=== PATIENT | female | born 1955 | race Caucasian/White ===

== ENCOUNTER 2017-07-28 17:28 | Emergency (ER) | payer BC ==
[2017-07-28] MEDS ORDERED: Ondansetron HCl/PF 4 MG/2 ML Vial ONE (17:40)
[2017-07-28] MEDS ORDERED: Promethazine HCl 25 MG/ML VIAL ONE (18:06)
[2017-07-28] MEDS ORDERED: diphenhydrAMINE 50 MG/ML VIAL ONE (18:06)
[2017-07-28 18:13] LABS: ALT (SGPT) 31 U/L (8-55); AST (SGOT) 25 U/L (5-34); Alkaline Phosphatase 80 U/L (40-150); Anion Gap 20 mmol/L (10-20); BUN (Urea Nitrogen) 23 mg/dL (9.8-20.1); Bilirubin, Total 0.4 mg/dL (0.2-1.2); Calc. Creatinine Clearance 0 mL/min (70-130); Calcium 9.5 mg/dL (7.8-10.44); Carbon Dioxide 17 mmol/L (23-31); Chloride 108 mmol/L (98-107); Estimated GFR-MDRD 46; Protein, Total 7.2 g/dL (6.0-8.3)
[2017-07-28 18:23] LABS: #Lymphocytes 0.4 thou/uL (1.20-3.40); #Monocytes 0.2 thou/uL (0.11-0.59); #Neutrophils 6.7 thou/uL (1.40-6.50); %Basophils 0.4 % (0.0-1.0); %Eosinophils 0.6 % (0.0-10.0); %Monocytes 2.9 % (0.0-10.0); Hematocrit 39.6 % (36.0-47.0); Mean Platelet Volume 6.8 fL (7.4-10.4); Red Blood Cell (RBC) Count 4.48 mill/uL (4.20-5.40); White Blood Cell (WBC) Count 7.3 thou/uL (4.8-10.8)
== END 2017-07-28 18:53 | disposition home or self-care (01) ==
LOC: SCSER 17:28
DX: E86.0 Dehydration (principal); R11.2 Nausea with vomiting, unspecified; R19.7 Diarrhea, unspecified; R51 Headache; E11.9 Type 2 diabetes mellitus without complications; E78.5 Hyperlipidemia, unspecified; I10 Essential (primary) hypertension; Z85.3 Personal history of malignant neoplasm of breast
CPT/HCPCS: 80053; 85025; 96374; 96375; J1200; J2405; J2550

== ENCOUNTER 2017-12-09 01:23 | Emergency (ER) | payer BC ==
[2017-12-09] MEDS ORDERED: Ketorolac Tromethamine 30 MG/ML VIAL ONE (01:48)
[2017-12-09] MEDS ORDERED: diphenhydrAMINE 50 MG/ML VIAL ONE (01:48)
[2017-12-09] MEDS ORDERED: Metoclopramide HCl 10 MG/2 ML VIAL ONE (01:48)
[2017-12-09] MEDS ORDERED: methylPREDNISolone Sod Succ/PF 125 MG/2 ML VIAL ONE (03:05)
[2017-12-09] MEDS ORDERED: Magnesium Sulfate 2 GM/NS 0.9% 50 ML BAG ONE (03:05)
[2017-12-09] MEDS ORDERED: Acetaminophen 500 MG TAB ONE (03:13)
--- NOTE | 2017-12-09 08:17 | RAD ---
UPRIGHT PORTABLE CHEST 1 VIEW: Date: 12/09/17 HISTORY: 62-year-old female with cough, fever, nasal congestion, headache, and generalized back pain. COMPARISON: 12/10/16. FINDINGS: Heart size is within normal limits. Lungs are clear. No confluent pneumonia, overt edema, or pleural effusion. IMPRESSION: No acute intrathoracic disease. Stable from prior study. POS: [facility]
== END 2017-12-09 04:14 | disposition home or self-care (01) ==
LOC: SCSER 01:23
DX: J20.9 Acute bronchitis, unspecified (principal); R51 Headache; E11.9 Type 2 diabetes mellitus without complications; E78.5 Hyperlipidemia, unspecified; I10 Essential (primary) hypertension; Z85.3 Personal history of malignant neoplasm of breast; Z79.899 Other long term (current) drug therapy
CPT/HCPCS: 71045; 94640; J1200; J1885; J2765; J2930; J3475; J7620

== ENCOUNTER 2017-12-09 17:49 | Emergency (ER) | payer BC ==
[2017-12-09] MEDS ORDERED: diphenhydrAMINE 50 MG/ML VIAL ONE (18:07)
[2017-12-09] MEDS ORDERED: Promethazine HCl 25 MG/ML VIAL ONE (18:07)
[2017-12-09] MEDS ORDERED: Haloperidol Lactate 5 MG/ML VIAL ONE (18:50)
[2017-12-09] MEDS ORDERED: Acetaminophen 500 MG TAB ONE (19:01)
--- NOTE | 2017-12-09 19:38 | CT ---
HEAD CT WITHOUT CONTRAST: 12/09/2017 HISTORY: Headache. COMPARISON: 09/15/2014 TECHNIQUE: Serial axial CT imaging at 4.8 mm intervals, from the vertex through the skull base, without contrast . FINDINGS: Partially imaged polypoid mucosal thickening noted within the left maxillary sinus. The imaged paran faby sinuses/mastoid air cells are well aerated otherwise. There is no displaced calvarial fracture. No intracranial hemorrhage, midline shift, mass effect, or ventricular enlargement. IMPRESSION: No acute findings. Stable head CT. POS: [facility]
[2017-12-09 19:42] LABS: Band 6 % (5-11); Lymphocytes 12 % (21-51); MDiff Complete? YES; Mean Corpuscular HGB CONC 34.8 g/dL (32.0-36.0); Mean Corpuscular Hemoglobin 30.5 pg (27.0-31.0); Mean Corpuscular Volume 87.6 fl (81.0-99.0); Mean Platelet Volume 6.5 fL (7.4-10.4); Monocytes 9 % (0-10); Neutrophil 71 % (42-75); PLT Morphology Comment PLT clumps seen-ADEQ; Platelet Count 137 thou/uL (130-400); RBC Distribution Width 12.9 % (11.5-14.5); Red Blood Cell (RBC) Count 3.95 mill/uL (4.20-5.40); White Blood Cell (WBC) Count 4.2 thou/uL (4.8-10.8)
[2017-12-09 19:43] LABS: ALT (SGPT) 27 U/L (8-55); AST (SGOT) 23 U/L (5-34); Albumin 3.9 g/dL (3.4-4.8); Alkaline Phosphatase 73 U/L (40-150); Anion Gap 15 mmol/L (10-20); BUN (Urea Nitrogen) 16 mg/dL (9.8-20.1); Bilirubin, Total 0.3 mg/dL (0.2-1.2); Calc. Creatinine Clearance 0 mL/min (70-130); Calcium 8.7 mg/dL (7.8-10.44); Carbon Dioxide 22 mmol/L (23-31); Chloride 109 mmol/L (98-107); Estimated GFR-MDRD 49; Globulin 2.9 g/dL (2.4-3.5); Glucose 122 mg/dL (80-115); Potassium 4.1 mmol/L (3.5-5.1); Protein, Total 6.8 g/dL (6.0-8.3); Sodium 142 mmol/L (136-145)
[2017-12-09 20:04] LABS: Bilirubin Negative (Negative); Blood, Urine Moderate (Negative); Clarity Clear (Clear); Glucose, Urine (Dipstick) Negative (Negative); Leukocyte Negative (Negative); Nitrite Negative (Negative); Protein, Urine (Dipstick) 30 mg/dL (Neg-Trace); Specific Gravity, Urine 1.015 (1.005-1.030); Urobilinogen 0.2 mg/dL (0.2-1.0); pH, Urine 7.5 (5.0-9.0)
[2017-12-09 20:15] LABS: Squamous Epithelial 0-3 HPF (0-3); WBC/HPF 0-3 HPF (0-3)
[2017-12-09] MEDS ORDERED: Magnesium Sulfate 2 GM/NS 0.9% 50 ML BAG ONE (20:41)
[2017-12-09] MEDS ORDERED: Ketorolac Tromethamine 30 MG/ML VIAL ONE (20:41)
[2017-12-09] MEDS ORDERED: cefTRIAXone\\ROCEPHIN 2 GM VIAL ONE (20:46)
--- NOTE | 2017-12-09 21:38 | RAD ---
CHEST TWO VIEWS: 12/09/2017 HISTORY: Fever. COMPARISON: 12/10/2016 FINDINGS: There is a focal area of pulmonary parenchymal opacity in the right perihilar region. There is no pn eumothorax, pleural fluid, or alveolar edema. Heart and mediastinal contours are unremarkable. IMPRESSION: Focal area of right perihilar opacity seen on frontal imaging. This is suspicious for right perihila r infectious pneumonitis/aspiration, given history of fever. Short-term follow-up imaging of the tabitha st following treatment is advised to exclude an underlying right hilar mass. CODE T POS: [facility]
--- NOTE | 2018-01-01 14:39 | EKG ---
Test Reason : Blood Pressure : / mmHG Vent. Rate : 098 BPM Atrial Rate : 098 BPM P-R Int : 164 ms QRS Dur : 102 ms QT Int : 350 ms P-R-T Axes : 028 027 034 degrees QTc Int : 446 ms Normal sinus rhythm Inferior infarct , age undetermined Normal QR interval Abnormal ECG Confirmed by SHANIQUE ASKEW ([id number]), commercial production editor STAN SILVERMAN ([id number]) on 01/01/2018 2:38:34 PM Referred By: Confirmed By:SHANIQUE ASKEW
== END 2017-12-09 22:58 | disposition home or self-care (01) ==
LOC: SCSER 17:49
DX: J18.9 Pneumonia, unspecified organism (principal); R51 Headache; E11.9 Type 2 diabetes mellitus without complications; E78.5 Hyperlipidemia, unspecified; I10 Essential (primary) hypertension; Z85.3 Personal history of malignant neoplasm of breast; Z79.82 Long term (current) use of aspirin; Z79.899 Other long term (current) drug therapy
CPT/HCPCS: 70450; 71045; 71046; 80053; 81003; 81015; 83605; 85025; 87040; 87086; 93005; 94640; 96365; 96367; 96375; J0696; J1200; J1630; J1885; J2550; J2765; J2930; J3475; J7620

== ENCOUNTER 2019-04-23 19:40 | Inpatient (IN) | payer BC ==
[~2019-04-23 19:40] MED LIST: ISOVUE-370 76%-LOCM 1 ML ONE
[2019-04-23] MEDS ORDERED: Promethazine HCl 25 MG/ML VIAL ONE (20:12)
[2019-04-23] MEDS ORDERED: diphenhydrAMINE 50 MG/ML VIAL ONE (20:12)
[2019-04-23 20:16] LABS: #Eosinphils 0.1 thou/uL (0.0-0.7); #Lymphocytes 1.2 thou/uL (1.20-3.40); #Monocytes 0.6 thou/uL (0.11-0.59); #Neutrophils 5.9 thou/uL (1.40-6.50); %Basophils 0.3 % (0.0-1.0); %Eosinophils 0.9 % (0.0-10.0); %Lymphocytes 15.5 % (21.0-51.0); %Monocytes 7.3 % (0.0-10.0); Hemoglobin 13.2 g/dL (12.0-16.0); Mean Corpuscular HGB CONC 34.3 g/dL (32.0-36.0); Mean Corpuscular Hemoglobin 31.2 pg (27.0-31.0); Mean Platelet Volume 7.8 fL (7.4-10.4); Platelet Count 186 thou/uL (130-400); RBC Distribution Width 13.3 % (11.5-14.5); Red Blood Cell (RBC) Count 4.24 mill/uL (4.20-5.40); White Blood Cell (WBC) Count 7.8 thou/uL (4.8-10.8)
[2019-04-23 20:35] LABS: ALT (SGPT) 30 U/L (8-55); AST (SGOT) 32 U/L (5-34); Albumin 4.4 g/dL (3.4-4.8); Alkaline Phosphatase 129 U/L (40-150); Anion Gap 15 mmol/L (10-20); BUN (Urea Nitrogen) 23 mg/dL (9.8-20.1); Bilirubin, Total 0.5 mg/dL (0.2-1.2); Calc. Creatinine Clearance 0 mL/min (70-130); Carbon Dioxide 26 mmol/L (23-31); Chloride 103 mmol/L (98-107); Estimated GFR-MDRD 31; Globulin 3.2 g/dL (2.4-3.5); Glucose 185 mg/dL (80-115); Potassium 4.3 mmol/L (3.5-5.1); Protein, Total 7.6 g/dL (6.0-8.3); Sodium 140 mmol/L (136-145)
[2019-04-23] MEDS ORDERED: Morphine 4 MG/ML VIAL ONE (21:14)
[2019-04-23] MEDS ORDERED: Ondansetron PF 4 MG/2 ML Vial ONE (21:20)
--- NOTE | 2019-04-23 22:01 | CT ---
CT ABDOMEN WITH CONTRAST CT PELVIS WITH CONTRAST: DATE: 04/23/2019 9:29 PM HISTORY: 64-year-old female with right upper quadrant abdominal pain, nausea, and emesis after liver biopsy pe rformed at [facility] yesterday. COMPARISON: 04/15/2019 TECHNIQUE: IV injection of iodinated contrast media: administered. Oral contrast media:Not administered FINDINGS: Again noted is the mass with heterogeneous attenuation and patchy mild to moderate enhancement, in th e right lobe of the liver, including hepatic segments 5 and 6. There is a new finding of a tiny, thin layer of superficial layer of fluid containing a tiny air bubble, at the lateral surface of the lower portion of the right lobe of the liver. There are otherwise no other collections of fluid. Bilateral renal cysts. No hydronephrosis. Normal a ppendix. No small bowel dilation. No colonic diverticulitis. No abdominal aortic aneurysm. Delayed excretion of IV contrast material into the gallbladder. No portal vein thrombosis. No adrenal nodule. Normal pancreas, adrenals, and spleen. No pneumoperitoneum. New finding of mild patchy groundglass densities at the bilateral lung bases, nonspecific. New findin g of mild confluent airspace density at base of right lower lobe, nonspecific, probably subsegmental atelectasis, unlikely to be early pneumonia, although that is not completely excluded. IMPRESSION: 1) very small, thin layer of postbiopsy hematoma at the lateral surface of right lobe of liver, is ex pected after recent biopsy. 2) no evidence of complications. 3) mild airspace density at base of right lower lobe. Favor atelectasis over pneumonia.
[2019-04-24] MEDS ORDERED: Dextrose 5% in Water 1,000 ML IV PRN (02:13)
[2019-04-24] MEDS ORDERED: Dextrose 50% Abboject 50 ML SYRINGE SLOW IVP PRN (02:13)
[2019-04-24] MEDS ORDERED: Sodium Chloride 0.9% 1,000 ML IV SCH (02:15)
--- NOTE | 2019-04-24 03:25 | PDOC.EVN ---
Event Note - Event Note Event Note: H&P dictated [id number]
[2019-04-24] MEDS: Morphine 4 MG/ML VIAL SLOW IVP PRN ×3 (03:35→21:22)
[2019-04-24] MEDS: Dextrose 5 % And 0.9 % NaCl 1,000 ML IV SCH ×2 (03:35→17:56)
[2019-04-24 04:31] VITALS: BMI 34.7
--- NOTE | 2019-04-24 05:08 | HP ---
CHIEF COMPLAINT: Abdominal pain. HISTORY OF PRESENT ILLNESS: Ms. Moore is a 64-year-old female with past medical history of breast cancer with suspicious lesion on the liver which was biopsied yesterday at [facility], presenting to the emergency room with abdominal pain. The patient also reports nausea and vomiting. Also she reports headache. She had chills, but no fever. The patient went yesterday to the [facility] Emergency Room and she was discharged on morphine with improvement and then the pain started to become worse again. The patient vomited after breakfast and lunch. Workup in the emergency room including CT of the abdomen, the patient was found to have small post biopsy hematoma. ED physician attempted to transfer the patient to [facility], but the hospital was at full capacity. The patient is being admitted for observation and surgeon is being consulted who will see the patient early in the morning. PAST MEDICAL HISTORY: 1. Breast cancer. 2. Migraines. 3. Diabetes. 4. Hypertension. 5. Hyperlipidemia. PAST SURGICAL HISTORY: Right knee replacement. HOME MEDICATIONS: Please see home medications reconciliation form for updated medications. ALLERGIES: ALLERGIC TO SULFA AND IMITREX. SOCIAL HISTORY: Drinks alcohol socially. Denies smoking. FAMILY HISTORY: Reviewed and noncontributory. REVIEW OF SYSTEMS: Review of 14-systems negative except what was mentioned in the history of present illness. PHYSICAL EXAMINATION: GENERAL: The patient is awake, alert, in moderate distress secondary to pain. VITAL SIGNS: Blood pressure 122/64, respiratory rate is 12, heart rate is 73, pulse oximetry is 100%. The patient is afebrile. HEAD AND NECK: Normocephalic and atraumatic. Neck is supple. No JVD. CHEST: Clear bilateral air entry. ABDOMEN: Soft with epigastric and right upper quadrant tenderness. Bowel sounds present. NEUROLOGIC: Awake, alert, oriented x3. PSYCHIATRIC: Normal mood. EXTREMITIES: No clubbing or cyanosis. IMAGING STUDIES: CT abdomen and pelvis showed a small thin layer with post biopsy hematoma, which is question calos expected post biopsy. LABORATORY DATA: WBC is 7.8, hemoglobin 13.2, platelets 186. Sodium 140, potassium 4.3, BUN is 23, creatinine 1.6, glucose 185. ASSESSMENT AND PLAN: 1. Acute abdominal pain post biopsy. 2. Liver mass, suspected metastasis post biopsy. 3. History of breast cancer. 4. Acute kidney injury. Creatinine is 1.65, the last creatinine was more than a year ago, it was around 1. 5. Diabetes. 6. Hypertension. 7. Hyperlipidemia. PLAN: 1. Admit. 2. We will keep the patient n.p.o. for now until patient evaluated in a.m. by surgeon. 3. IV fluids. 4. Pain management. 5. Monitor kidney function and urine output. 6. Reconcile home medications. 7. Deep venous thrombosis prophylaxis with SCDs, early ambulation. EXPECTED LENGTH OF STAY: At least 1 night if patient is stable and cleared by surgeon. Job ID: [id number]
[2019-04-24] MEDS: HumaLOG 300 UNITS/3 ML VIAL SC PRN (06:07)
[2019-04-24] MEDS: diphenhydrAMINE 25 MG CAP PO PRN (06:49)
[2019-04-24] MEDS: Aspirin 81 mg Enteric Coated Tablet PO SCH (09:10)
[2019-04-24] MEDS: Calcium Carbonate + Vit D 1 TAB PO SCH ×2 (09:31→17:55)
[2019-04-24] MEDS: Multivitamin W/ Minerals 1 TAB PO SCH (09:31)
[2019-04-24] MEDS: Docusate 100 MG CAP PO SCH (09:31)
[2019-04-24] MEDS: Metoprolol Tartrate 25 MG TAB PO SCH ×2 (09:45→21:27)
[2019-04-24] MEDS ORDERED: Liraglutide [Victoza 3-Pak] 1.2 MG SC SCH (10:15)
--- NOTE | 2019-04-24 11:13 | PRG ---
DATE OF SERVICE: SUBJECTIVE: The patient is a 64-year-old female, who presented to the emergency department. The patient has a history of cancer, followed by Dr. Gabriel about 10 years ago. She has a recurrent mass in her liver. She has been experiencing some discomfort in the right upper quadrant area, likely related to this tumor prior to the biopsy, she did go [facility] on Saturday and had a needle biopsy with CT guidance. She subsequently had right upper quadrant pain and went back to the emergency room where she had a CT scan. She then had some vomiting yesterday with persistent pain, which she states is in the area of the biopsy and is fairly positional. She went back to the ER last evening where repeat CT scan again showed subcapsular small hematoma at the site of the biopsy. She has been receiving morphine overnight, which seems to be adequate. She reports that she has significant headache this morning. She had a history of a knee replacement requiring pain medications which caused her some significant headaches as well. There is a concern about the morphine potentially contributing to that. She reports she had an appointment this morning scheduled for Dr. Gabriel and that their office is following up on biopsy results. OBJECTIVE: VITAL SIGNS: Temperature is 99.1, pulse 89, respirations 16, O2 saturation 92% on 3 L nasal cannula, BP is 124/58. GENERAL APPEARANCE: Age-appropriate female, in no distress. She is a bit groggy. HEART: Regular rate and rhythm without murmurs. LUNGS: Notable for very minimal rales at the right lung base. ABDOMEN: There is a small bruise in the right upper quadrant from the biopsy. She is tender in that area. There are no significant masses noted. Remainder of the abdomen is benign. EXTREMITIES: There is no significant edema. IMPRESSION AND PLAN: 1. Right upper quadrant abdominal pain. The patient has a liver mass concerning for recurrent cancer. She has had a liver biopsy performed, which has resulted in a small subcapsular hematoma, which is most likely the source of the pain. She has had 3 CT scans within about 24 hour period. We will discuss with Radiology. We will get an ultrasound, although it is less sensitive. I do not want to give her any further radiation or consider contrast just to ensure there has been no progression of the hematoma. In the meantime, continue with pain medications. 2. Liver mass, possible recurrent breast cancer. Discussed with Oncology. We will see her in consult today. 3. Acute on chronic renal disease. The patient's GFR typically runs in the 40s. It is now 31, unclear if this is true progression. We will repeat labs this morning. Continue with IV fluids. 4. Diabetes, stable. 5. Hypertension. Continue usual home medications. 6. Hyperlipidemia. Continue home regimen. Job ID: [id number]
[2019-04-24 11:53] LABS: #Eosinphils 0.1 thou/uL (0.0-0.7); #Lymphocytes 1.5 thou/uL (1.20-3.40); #Monocytes 0.4 thou/uL (0.11-0.59); #Neutrophils 3.3 thou/uL (1.40-6.50); %Eosinophils 2.5 % (0.0-10.0); %Lymphocytes 27.5 % (21.0-51.0); %Monocytes 7.7 % (0.0-10.0); %Neutrophils 62.3 % (42.0-75.0); Mean Corpuscular HGB CONC 33.2 g/dL (32.0-36.0); Mean Corpuscular Hemoglobin 30.7 pg (27.0-31.0); Mean Corpuscular Volume 92.5 fL (78.0-98.0); Mean Platelet Volume 7.3 fL (7.4-10.4); Platelet Count 149 thou/uL (130-400); RBC Distribution Width 13.3 % (11.5-14.5); Red Blood Cell (RBC) Count 3.92 mill/uL (4.20-5.40); White Blood Cell (WBC) Count 5.3 thou/uL (4.8-10.8)
[2019-04-24 12:02] LABS: ALT (SGPT) 22 U/L (8-55); AST (SGOT) 23 U/L (5-34); Albumin 3.8 g/dL (3.4-4.8); Alkaline Phosphatase 101 U/L (40-150); Anion Gap 10 mmol/L (10-20); BUN (Urea Nitrogen) 17 mg/dL (9.8-20.1); Bilirubin, Total 0.4 mg/dL (0.2-1.2); Calc. Creatinine Clearance 55 mL/min (70-130); Carbon Dioxide 27 mmol/L (23-31); Chloride 105 mmol/L (98-107); Estimated GFR-MDRD 38; Globulin 2.6 g/dL (2.4-3.5); Glucose 155 mg/dL (80-115); Protein, Total 6.4 g/dL (6.0-8.3); Sodium 138 mmol/L (136-145)
--- NOTE | 2019-04-24 13:02 | ULT ---
RIGHT UPPER QUADRANT ULTRASOUND: DATE: 04/24/2019. COMPARISON: CT abdomen and pelvis 04/23/2019. HISTORY: Evaluate post biopsy hematoma. TECHNIQUE: Multiplanar, potts scale sonographic imaging of the right upper quadrant obtained. FINDINGS: Pancreas is obscured by bowel gas. Hepatic parenchyma is heterogeneous and echogenic suggesting steatosis. There is a hypoechoic solid mass lesion in the lateral aspect of the right lobe of the liver measurin g approximately 6.7 x 6.2 x 6.0 cm, consistent with the patient's known mass lesion identified on gin or CT. No obvious post biopsy hematoma is seen. CT would be the study of choice, however, as it has greater sensitivity for postprocedural hemorrhage. Common bile duct measures 5 mm, within normal limits. The right kidney measures 10 cm craniocaudal dimension and demonstrates no stone, hydronephrosis, or mass. No gallbladder wall thickening or cholelithiasis. Negative Ornelas's sign. IMPRESSION: There is bowel gas in the area of prior biopsy limiting assessment for postbiopsy hematoma. No obvio us large hematoma is seen. Hypoechoic mass noted within right lobe of liver. If clinically warranted, a focused CT examination of the abdomen would be required to evaluate postpr ocedural hematoma. POS: [facility]
[2019-04-24] MEDS: Ondansetron PF 4 MG/2 ML Vial IVP PRN ×2 (14:50→21:10)
--- NOTE | 2019-04-24 17:38 | NM ---
NM Hida Scan W Drug HISTORY: Right upper quadrant pain for the past 6 months COMPARISON: 04/24/2019 ultrasound examination. FINDINGS: Examination is performed using 4.8 mCi of 90 9M technetium mebrofenin. This shows a normal distribution of radiopharmaceutical within the liver. Gallbladder activity seen by approximately 10 minutes. A 1.7 mcg dose of CCK was administered 30 minutes prior to the injection of the radiopharmac eutical and 1.7 mcg subsequently infused 60 minutes postinjection. The gallbladder ejection fraction is 66%. IMPRESSION: Unremarkable hepatobiliary scan.
[2019-04-24] MEDS ORDERED: Acetaminophen/Codeine 30-300mg Tablet PO PRN (20:34)
[2019-04-24] MEDS: Atorvastatin Calcium 10 MG TAB PO SCH (21:27)
--- NOTE | 2019-04-24 22:42 | CON ---
DATE OF CONSULTATION: 04/24/2019 HISTORY OF PRESENT ILLNESS: Ms. Moore is a 64-year-old female with a history of breast cancer in remission for the last 10 years, who presented recently to her primary care physician with complaints of right upper quadrant pain. Outpatient abdominal ultrasound and CT scan revealed a 6.7 cm mass in the liver. This was biopsied 48 hours ago at [facility] with results pending. On the night after the biopsy, the patient had excruciating pain as well as nausea and vomiting, who presented to the [facility] Emergency Room. There, hospital was full and she was located in the emergency room. She was given analgesics and morphine and was sent home. She presented back to our emergency room last night, because of complaints of increasing nausea, vomiting as well as migraines and pain in the right upper quadrant. A CT scan done in our emergency room on this admission showed a mass with a tiny thin layer of fluid containing a tiny air bubble at the lateral surface of the lower portion of the right lobe of the liver without any other evidence of complications. Today, the patient still complains of excruciating pain. She is getting an ultrasound during my interview and she can hardly sit still, because she is so uncomfortable. She has had some constipation over the last few days. She denies any current nausea, vomiting. She denies headache currently. PAST MEDICAL HISTORY: 1. History of breast cancer treated 10 years ago and in remission. 2. History of migraines. 3. Diabetes mellitus. 4. Hypertension. 5. Hyperlipidemia. CURRENT MEDICATIONS: 1. Aspirin 81 mg p.o. daily. 2. Lipitor 10 mg p.o. at bedtime. 3. Calcium with vitamin D 1 tab p.o. b.i.d. 4. Benadryl 25 mg p.o. q.6 hours p.r.n. 5. Colace 100 mg p.o. daily. 6. Glucagon 1 mg IM p.r.n. 7. Humalog lispro sliding scale. 8. Lopressor 25 mg p.o. b.i.d. 9. Morphine 4 mg IV q.4 hours p.r.n. 10. Protonix 40 mg p.o. daily. ALLERGIES: SUMATRIPTAN. SOCIAL HISTORY: She lives in [place] with her family and they are quite supportive. She has 2 children and 2 grandchildren. She denies anything other than occasional alcohol use. No tobacco use. FAMILY HISTORY: Noncontributory. REVIEW OF SYSTEMS: Otherwise, she complaints of some diarrhea in the recent past, but no significant weight loss, fevers, or night sweats. PHYSICAL EXAMINATION: VITAL SIGNS: Temp 99.1, pulse 89, respirations 16, O2 saturation 92-95 percent on 3 L nasal cannula, blood pressure 124/58. GENERAL: She is alert, awake, and oriented x3. She is quite pleasant, in no acute distress. HEENT: Extraocular muscles are intact. Pupils reactive to light. She has no oral cavity lesions. NECK: Supple without lymphadenopathy. CARDIOVASCULAR: Regular rhythm. LUNGS: Clear to auscultation. ABDOMEN: Hypoactive bowel sounds. Soft, nontender, nondistended. EXTREMITIES: No edema. LABORATORY DATA: White blood cell count 5.3, hemoglobin 12.0, platelets 149. Her electrolytes are normal with the exception of creatinine of 1.65 on admission, glucose of 185, calcium 10.0. Liver function tests are normal. ASSESSMENT: Ms. Moore is a 64-year-old female with: 1. History of breast cancer 10 years ago, currently thought to be in remission. 2. Liver mass. 3. Abdominal pain, acutely worse after the biopsy, the last 48 hours ago. 4. Diabetes mellitus. PLAN: 1. We will wait on the final results of the biopsy from [facility], I have already called them, but I have no results. 2. I have sent tumor markers including CEA, CA-19-9, CA 27-29. 3. We will await the results of the abdominal ultrasound, which she just had done this morning. 4. Her pain is somewhat well controlled, but she may need more pain medication. 5. We will follow with you. Job ID: [id number]
[2019-04-25] MEDS: HumaLOG 300 UNITS/3 ML VIAL SC PRN (00:06)
--- NOTE | 2019-04-25 01:16 | CON ---
DATE OF CONSULTATION: REASON FOR CONSULT: Abdominal pain, nausea and vomiting. HISTORY OF PRESENT ILLNESS: Ms. Moore is a 64-year-old woman, past medical history of breast cancer many years ago. This was hormone sensitive and node-negative and was treated with lumpectomy, radiation and chemotherapy by her report. She developed some nausea 2months ago, which became almost constant. She went to her primary care doctor who was concerned that it could be related to her gallbladder. She states that it was not related to eating activity or position. It would happen randomly and then become more and more frequent. She was sent for gallbladder ultrasound. The gallbladder appeared normal, but she was noted to have a large mass in her liver. She was sent for a CT-guided biopsy, which was performed on Saturday. After the biopsy, she had some pain in her right flank, which she was told was normal. However, the pain instead of getting better, worsened over the next few days and the nausea also became worse to the point that she began throwing up and came into the emergency room. She was admitted to the medical service. A CT scan in the emergency room showed a small subcapsular hematoma, but no other abnormalities. It was felt that the hematoma was a result of the biopsy. The patient is feeling better today. She states that her pain has improved and her nausea is also much better. She has not really had much of an appetite and yesterday only had mashed potatoes due to her severe nausea, but could not even keep that down today. Today however, she is not feeling nauseated. She is still having fairly severe pain in the right flank, although the pain medications are helping. The pain in her right flank has been constant since the biopsy and is sharp and severe. She has not had any fevers or chills. She has not had any diarrhea or blood in her stool or in her emesis. PAST MEDICAL HISTORY: Breast cancer, diabetes, hypertension, and hyperlipidemia. PAST SURGICAL HISTORY: Knee replacements and lumpectomy. REVIEW OF SYSTEMS: Ten system review of systems is negative except per HPI. ALLERGIES: SHE REPORTS ALLERGIES TO SULFA AND IMITREX. SOCIAL HISTORY: She drinks occasionally, but not to excess and does not smoke or use illicit drugs. FAMILY HISTORY: Noncontributory. PHYSICAL EXAMINATION: VITAL SIGNS: Unremarkable. GENERAL: Reveals a pleasant woman, in no acute distress except for when she tries to turn or move or take a deep breath. HEENT: Unremarkable. NECK: Supple without lymphadenopathy or thyroid nodules. HEART: Regular in its rate and rhythm without murmurs, rubs, or gallops. LUNGS: Clear to auscultation bilaterally. ABDOMEN: Soft and nondistended. She is nontender to palpation in both lower quadrants and in the left upper quadrant, mildly tender to palpation in the epigastrium, moderately tender to palpation in the right upper quadrant and very tender to palpation in the right flank. She does not exhibit rigidity, rebound or guarding however. No palpable masses or hernia. EXTREMITIES: Warm and well perfused without edema. NEUROLOGIC: No focal deficits. PSYCHIATRIC: Alert, oriented and appropriate. LABORATORY DATA: Lab work is unremarkable. Hematocrit is stable since admission. IMAGING: CT images are reviewed and I agree with the written report. The patient has a large mass in the right lobe of her liver, which is heterogeneous and suspicious for metastatic disease. She has a tiny subcapsular hematoma with a miniscule air bubble consistent with bleeding related to her recent biopsy. No free fluid in the abdomen. No free air. Stomach does not appear distended. ASSESSMENT: Right flank pain is likely a sequela of liver biopsy, this is temporally related to the onset of her pain and is in the right distribution. She does not have peritonitis or any sign of bowel injury on CT. Cholecystitis is still within the possible differential, although I was present when she got her gallbladder ultrasound and the images of the gallbladder looks normal to me. I recommended that, if the final read of the ultrasound was normal, that a HIDA scan could be useful to rule out acalculous cholecystitis, but I feel this is unlikely. As far her persistent nausea and recent vomiting, I doubt that this is related to her gallbladder, it is not postprandial in nature and her gallbladder workup has thus far been negative. I doubt that it is related to liver mass. However, as this does not appear to be causing any obstruction, GI consult might be worthwhile, although this could be done as an outpatient. Symptomatic management seems reasonable for now. The HIDA scan was performed after the final read on the gallbladder ultrasound came back as normal, and the HIDA scan was also normal. I recommend continued observation and symptomatic management. Dr. Chen is going to cover over the weekend, but I do not anticipate any need for surgical intervention. Job ID: [id number]
[2019-04-25] MEDS: Dextrose 5 % And 0.9 % NaCl 1,000 ML IV SCH ×2 (08:06→20:43)
[2019-04-25] MEDS: Morphine 4 MG/ML VIAL SLOW IVP PRN (08:18)
[2019-04-25] MEDS: Multivitamin W/ Minerals 1 TAB PO SCH (08:21)
[2019-04-25] MEDS: Calcium Carbonate + Vit D 1 TAB PO SCH ×2 (08:22→18:02)
[2019-04-25] MEDS: Aspirin 81 mg Enteric Coated Tablet PO SCH ×2 (08:22→08:25)
[2019-04-25] MEDS: Metoprolol Tartrate 25 MG TAB PO SCH ×2 (08:22→20:40)
[2019-04-25] MEDS: Docusate 100 MG CAP PO SCH (08:22)
[2019-04-25] MEDS: Liraglutide [Victoza 3-Pak] 1.2 MG SC SCH (08:25)
--- NOTE | 2019-04-25 15:52 | PRG ---
DATE OF SERVICE: 04/25/2019 SUBJECTIVE: The patient is still having quite a bit of pain in the right upper quadrant, although it is better than yesterday, still having some nausea, no vomiting. She complains of migraine headache. OBJECTIVE: VITAL SIGNS: Temperature 97.5, pulse 75, blood pressure 144/72. GENERAL: She is awake, alert, in minimal distress, although she is holding her right side. HEENT: Unremarkable. LUNGS: Clear. HEART: Regular rate and rhythm. ABDOMEN: Mildly tender. No peritoneal signs. She had a bowel movement. LABORATORY DATA: No lab today, although her glucose is 150. ASSESSMENT: Hepatic hematoma after biopsy. PLAN: Awaiting biopsy results. Job ID: [id number]
--- NOTE | 2019-04-25 16:49 | PDOC.HOSPP ---
- Subjective Encounter Date: 04/25/19 Encounter Time: 16:45 Subjective: f/u for N/V and R flank/UQ abd pain s/p hepatic bx with likely hepatic hematoma. Feels better overall. No N/V. - Objective Vital Signs & Weight: Vital Signs (12 hours) Temp Pulse Resp BP Pulse Ox 04/25/19 12:05 97.5 F L 75 18 144/72 H 91 L 04/25/19 08:00 97.7 F 73 20 150/70 H 96 04/25/19 04:56 98.1 F 62 16 141/61 H 96 Weight Weight 189 lb 15.204 oz I&O: 04/24/19 04/25/19 04/26/19 06:59 06:59 06:59 Intake Total 240 2889 Balance 240 2889 Result Diagrams: 04/24/19 11:36 04/24/19 11:36 Additional Labs: Accuchecks 04/25/19 04/25/19 04/24/19 12:01 06:02 23:58 POC Glucose 154 H 120 H 160 H 04/24/19 18:06 POC Glucose 146 H Laboratory Tests 12/09/17 04/23/19 04/24/19 19:24 19:56 18:04 Creatinine 1.13 H 1.65 H Carcinoembryonic Ag 1.82 CA 125 (JOANNA) 04/24/19 18:04 Creatinine Carcinoembryonic Ag CA 125 (JOANNA) 17.4 Radiology Reviewed by me: Yes (HIDA scan - neg) Hospitalist ROS - Medication Medications: Active Medications Generic Name Dose Route Start Last Admin Trade Name Freq PRN Reason Stop Dose Admin Aspirin 81 mg 04/24/19 09:00 04/25/19 08:25 Ecotrin PO Not Given QAM KITA Atorvastatin Calcium 10 mg 04/24/19 21:00 04/24/19 21:27 Lipitor PO 10 mg HS KITA Administration Calcium/Vitamin D 1 tab 04/24/19 08:00 04/25/19 08:22 Caltrate 600 + Vit D PO 1 tab BID-WM KITA Administration Diphenhydramine HCl 25 mg 04/24/19 06:42 04/24/19 06:49 Benadryl PO 25 mg Q6H PRN Administration Itching & Insomnia Docusate Sodium 100 mg 04/24/19 09:00 04/25/19 08:22 Colace PO 100 mg QAM KITA Administration Dextrose/Sodium Chloride 1,000 mls @ 75 mls/hr 04/24/19 02:15 04/25/19 08:06 D5 0.9% Ns IV 1,000 mls .[id number] KITA Administration Insulin Human Lispro 0 units 04/24/19 02:13 04/25/19 00:06 Humalog SC 2 unit .MILD SLIDING SCALE PRN Administration Mild Correctional Scale Iron/Minerals/Multivitamins 1 tab 04/24/19 09:00 04/25/19 08:21 Theragran M PO 1 tab DAILY KITA Administration Metoprolol Tartrate 25 mg 04/24/19 09:00 04/25/19 08:22 Lopressor PO 25 mg BID KITA Administration Morphine Sulfate 4 mg 04/24/19 03:28 04/25/19 08:18 Morphine SLOW IVP 4 mg Q4H PRN Administration Pain Ondansetron HCl 4 mg 04/24/19 15:07 04/24/19 21:10 Zofran IVP 4 mg Q6H PRN Administration Nausea/Vomiting Pantoprazole Sodium 40 mg 04/24/19 09:00 04/25/19 08:21 Protonix PO 40 mg DAILY KITA Administration Liraglutide [Victoza 0 each 04/25/19 09:00 04/25/19 08:25 3-Stevenson] 1.2 Mg SC 1 each DAILY KITA Administration - Exam General Appearance: NAD, awake alert Eye: PERRL, anicteric sclera ENT: normocephalic atraumatic, no oropharyngeal lesions Neck: supple, symmetric, no JVD, no thyromegaly Heart: RRR, no murmur, no gallops, no rubs, normal peripheral pulses Respiratory: CTAB, no wheezes, no rales, no ronchi Gastrointestinal: soft, non-distended, normal bowel sounds, no palpable masses, no hepatomegaly Extremities: no cyanosis, no clubbing, no edema Skin: normal turgor, no lesions Neurological: cranial nerve grossly intact, no focal deficits, no new deficit Musculoskeletal: normal tone, normal strength, no muscle wasting Psychiatric: A&O x 3 Hosp A/P (1) RUQ abdominal pain Code(s): R10.11 - RIGHT UPPER QUADRANT PAIN Status: Acute Plan: Secondary to hepatic bx and mild hepatic hematoma, trial of Lidocaine patch and Toradol in addition to Morphine Sulfate (2) Liver mass Code(s): R16.0 - HEPATOMEGALY, NOT ELSEWHERE CLASSIFIED Status: Acute Plan: s/p hepatic bx with pathology pending, pain control prn (3) Acute kidney injury superimposed on CKD Code(s): N17.9 - ACUTE KIDNEY FAILURE, UNSPECIFIED; N18.9 - CHRONIC KIDNEY DISEASE, UNSPECIFIED Status: Acute Plan: Avoid nephrotoxic medications and limit contrast exposure, serial creatinine (4) DM II (diabetes mellitus, type II), controlled Code(s): E11.9 - TYPE 2 DIABETES MELLITUS WITHOUT COMPLICATIONS Status: Chronic Plan: Continue Victoza, ISS
[2019-04-25] MEDS: Ketorolac Tromethamine 30 MG/ML VIAL IVP SCH (18:05)
[2019-04-25] MEDS: Lidocaine 5% Patch TD SCH (18:06)
--- NOTE | 2019-04-25 18:10 | CT ---
CT HEAD WITH AND WITHOUT CONTRAST: 04/25/19 INDICATIONS: Nausea. History of breast cancer. COMPARISON: Comparison made to head CT of 12/09/17. Noncontrast head CT shows no evidence of mass or hemorrhage. Nonspecific white matter lucency may rep resent mild chronic ischemic change. Postcontrast head CT shows no evidence of abnormal enhancement. No metastatic lesion identified. Sinu ses and mastoids are clear. IMPRESSION: Unremarkable CT head with and without contrast. POS: AGW
[2019-04-25] MEDS: Melatonin 3 MG TAB PO SCH (20:39)
[2019-04-25] MEDS: Atorvastatin Calcium 10 MG TAB PO SCH (20:40)
--- NOTE | 2019-04-25 23:03 | CON ---
DATE OF CONSULTATION: 04/25/2019 CHIEF COMPLAINT: Nausea, intermittent diarrhea, abdominal pain. HISTORY OF PRESENT ILLNESS: Ms. Moore is a 64-year-old woman who had a liver biopsy on Saturday for liver mass. She reports that the radiologist had to make multiple passes to get a core tissue. She developed pain on and ultimately was admitted to [facility] yesterday with pain in the right side of the abdomen secondary to the liver biopsy. She would feel nauseated whenever she would sit up. She is having less pain today and she has had no vomiting today. Her nausea is doing better today. Prior to the liver biopsy, however, she has had GI symptoms for the last 6-8 weeks for which her primary care doctor again was planning on referral back to GI for further evaluation. She has had nausea around the last 6 weeks, it is mostly worse in the morning, she wakes up with the nausea. The nausea can come and go throughout the day and it lasts for around 30 minutes and then goes away on its own, so she has not taken any antinausea medicine for it. She has a bowel movement about once every couple of days, which is typically soft and would easily pass. Around once per week, she has a watery stool with urgency and this has been concerning to her. She has had no blood in the stool. Her weight has been stable. No fever with this. She does not notice that any particular foods trigger the nausea or the loose stools. The loose stools occur whether she takes lactose or not. She does not take any artificial sweeteners. She has been on several medications and multiple supplements including multiple vitamin with iron and magnesium. Her prescription medicines have been the same for years. She does take Excedrin a couple of times in the last month for headaches. She has had intermittent migraine headaches, but the nausea lately has not been directly tied to her headaches. She had a colonoscopy in August [address] Bhatt that revealed 5 small adenomas, that was otherwise normal except for diverticulosis in the transverse colon. The terminal ileum was normal. PAST MEDICAL HISTORY: Breast cancer that was treated 10 years ago and has been in remission. Hyperlipidemia, hypertension, diabetes mellitus, migraine headaches. PAST SURGICAL HISTORY: Knee replacement. She has had colonoscopy in August of 2017. FAMILY HISTORY: Positive for colon cancer in her father. ALLERGIES: SULFA, IMITREX. SOCIAL HISTORY: Occasional alcohol. No smoking. No drugs. REVIEW OF SYSTEMS: Negative x10 systems reviewed except as stated in the history of present illness. PHYSICAL EXAMINATION: VITAL SIGNS: Temperature 97.8, pulse 68, blood pressure 167/73. GENERAL: She is in no acute distress. Alert and oriented x3. HEENT: Eyes have no scleral icterus. Oropharynx is clear without lesions. No cervical or supraclavicular lymphadenopathy. LUNGS: Clear to auscultation bilaterally. HEART: Regular rate and rhythm without murmur. ABDOMEN: Soft, nontender overall, she does have tenderness over her right upper abdomen. Her bowel sounds are present. EXTREMITIES: No lower extremity edema. Cranial nerves are grossly intact. IMPRESSION: 1. Right upper quadrant abdominal pain following liver biopsy. The stretch of the Logan capsule will cause pain and when she sits up, can trigger vagal reaction as well with worsening of nausea. Overall, the hematoma will have to resolve itself as long as it is not expanding and I will not address this further. Really, the primary issues from a GI standpoint are related to her chronic nausea and intermittent episodes of diarrhea. The current right upper quadrant pain is not typical of gallbladder origin and her ultrasound and HIDA scan are unrevealing. 2. Chronic nausea. Often this is in the morning when she wakes up, however, it can come and go through the day. The nausea typically only lasts for around 30 minutes at a time and goes away before she would take an antiemetic. She has not typically had vomiting with this. There have been no food triggers for the nausea. She does take multiple medications and the prescription medicines have been stable, however. She does take aspirin previously before she had her liver biopsy and intermittent Excedrin, however, the Excedrin is only a couple of times in the last month and does not appear to be related to her nausea. She does take a multiple vitamin with iron at home and the iron could be contributing. We will advise stopping that. In fact, I would stop all nonessential medications until we get her symptoms better controlled. In light of the history of breast cancer and new possible tumor in the liver, a CT scan of the head can be performed to rule out intracranial mass or lesion contributing to her nausea as no other obvious source is identified. 3. Intermittent diarrhea. She has a bowel movement about every other day and then once per week. She will have liquidy stool with urgency. Given the infrequency of these liquidy urgent stools, suspicion for a dietary trigger is raised. The symptoms do not correlate with lactose intake. She does take magnesium daily and we can stop this. She will keep a food diary and look for correlations. Stool studies likely will not be helpful given that she only has a diarrhea once per week and even on those days it is only one stool per day. I would check a tissue transglutaminase antibody for celiac screening. She just had a colonoscopy in August 2017. Repeat colonoscopy at this time is unlikely to really bladder changer. The suspicion for microscopic colitis or inflammatory bowel disease is low given that again the symptoms are fairly infrequent. RECOMMENDATIONS: 1. Plan outpatient EGD in a couple of weeks after resolution of her acute pain from the hematoma. This is to evaluate the chronic nausea. 2. Stop all the nonessential supplements. We can stop the iron with multiple vitamin. We will hold aspirin for now as well considering the hematoma also. She will try to avoid any NSAIDs or aspirin use for now. 3. She has been taking the pantoprazole in the morning, but since she is waking up with nausea, I would recommend trying to switch that to 30 minutes before the evening meal to see if that helps with the nausea on regular basis in case some nocturnal reflux is contributing to her symptoms. 4. CT scan of the brain to rule out neoplastic process related to the nausea. However, this is not likely. 5. Check tissue transglutaminase antibody. 6. If the diarrhea becomes more persistent, then we will need to obtain stool studies and consider repeat colonoscopy. Job ID: [id number]
[2019-04-26] MEDS: Ketorolac Tromethamine 30 MG/ML VIAL IVP SCH (00:07)
[2019-04-26 04:06] LABS: Anion Gap 11 mmol/L (10-20); BUN (Urea Nitrogen) 15 mg/dL (9.8-20.1); Calc. Creatinine Clearance 56 mL/min (70-130); Calcium 9.3 mg/dL (7.8-10.44); Carbon Dioxide 26 mmol/L (23-31); Chloride 107 mmol/L (98-107); Estimated GFR-MDRD 38; Glucose 139 mg/dL (80-115); Potassium 3.9 mmol/L (3.5-5.1); Sodium 140 mmol/L (136-145)
[2019-04-26] MEDS: Lidocaine Patch Removal 1 EACH TOP SCH (05:35)
[2019-04-26] MEDS: Metoprolol Tartrate 25 MG TAB PO SCH ×2 (08:07→20:37)
[2019-04-26] MEDS: Liraglutide [Victoza 3-Pak] 1.2 MG SC SCH (08:07)
[2019-04-26] MEDS: Multivitamin W/ Minerals 1 TAB PO SCH (08:07)
[2019-04-26] MEDS: Docusate 100 MG CAP PO SCH (08:07)
[2019-04-26] MEDS: HumaLOG 300 UNITS/3 ML VIAL SC PRN (11:32)
[2019-04-26] MEDS: Dextrose 5 % And 0.9 % NaCl 1,000 ML IV SCH (13:33)
--- NOTE | 2019-04-26 14:20 | PRG ---
DATE OF SERVICE: 04/26/2019 SUBJECTIVE: The patient is feeling much better today. She has been able to eat. No nausea or vomiting. OBJECTIVE: VITAL SIGNS: Temperature 97.7, pulse 65, and blood pressure 178/79. GENERAL: She looks better. ASSESSMENT: No surgical indication at this time. PLAN: Discharge. Follow up with Dr. Lopez in a week or 2. Job ID: [id number]
--- NOTE | 2019-04-26 14:43 | PRG ---
DATE OF SERVICE: 04/26/2019 SUBJECTIVE: Ms. Moore's nausea is better today. She has less abdominal pain at the biopsy site. She did have an episode of liquidy diarrhea today. There is no obvious future years from last night or this morning for that. OBJECTIVE: VITAL SIGNS: Temperature 97.7, pulse 65, blood pressure 178/79. GENERAL: She is in no acute distress. She is alert and oriented x3. LUNGS: Clear to auscultation bilaterally. HEART: Regular rate and rhythm. ABDOMEN: Soft, nontender, nondistended. Bowel sounds are present. EXTREMITIES: No lower extremity edema. LABORATORY DATA: Hemoglobin is 12.0, platelets 149, white blood cell count 5.3. Creatinine 1.38. IMPRESSION: 1. Acute right-sided abdominal pain secondary to liver biopsy, appears to be improving. Hemoglobin did trend down slightly today, but her pain is improving. We will follow that. 2. Chronic nausea, most mornings. CT scan of the brain is negative. She has been taking multiple supplements, which can be held temporarily for now. She will avoid nonsteroidal anti-inflammatory drugs. 3. Intermittent diarrhea. She did have an episode of diarrhea today without obvious trigger. RECOMMENDATIONS: 1. Check stool samples with the next liquidy stool. 2. Follow up tissue transglutaminase antibody. 3. Take proton pump inhibitor in the evening 30 minutes before the evening meal. 4. Stop all nonessential supplements for now including the iron and calcium, and hold aspirin. 5. Stool studies today with the next liquidy stool. We will send C diff culture, ova and parasite, and lactoferrin. 6. The chronic nausea and intermittent diarrhea can be followed up as an outpatient for chronic management. Her abdominal pain and acute nausea secondary to the liver biopsy. I will sign off for now. Please call if GI can be of assistance. Job ID: [id number]
--- NOTE | 2019-04-26 15:32 | PDOC.HOSPP ---
- Subjective Encounter Date: 04/26/19 Encounter Time: 15:30 Subjective: f/u s/p liver bx with pathology pending. Post-procedure abd pain with N/V now improved. Small subcapsular hematoma noted after procedure conservatively managed. - Objective Vital Signs & Weight: Vital Signs (12 hours) Temp Pulse Resp BP Pulse Ox 04/26/19 08:00 97.7 F 65 16 178/79 H 94 L Weight Weight 189 lb 15.204 oz I&O: 04/25/19 04/26/19 04/27/19 06:59 06:59 06:59 Intake Total 2889 3221 Balance 2889 3225 Result Diagrams: 04/24/19 11:36 04/26/19 03:38 Additional Labs: Accuchecks 04/26/19 04/26/19 04/25/19 11:22 05:35 20:37 POC Glucose 212 H 132 H 131 H 04/25/19 18:07 POC Glucose 90 Laboratory Tests 12/09/17 04/23/19 04/24/19 19:24 19:56 18:04 Creatinine 1.13 H 1.65 H Carcinoembryonic Ag 1.82 CA 125 (JOANNA) 04/24/19 18:04 Creatinine Carcinoembryonic Ag CA 125 (JOANNA) 17.4 Radiology Reviewed by me: Yes (CT brain - negative) Hospitalist ROS - Medication Medications: Active Medications Generic Name Dose Route Start Last Admin Trade Name Freq PRN Reason Stop Dose Admin Atorvastatin Calcium 10 mg 04/24/19 21:00 04/25/19 20:40 Lipitor PO 10 mg HS KITA Administration Diphenhydramine HCl 25 mg 04/24/19 06:42 04/24/19 06:49 Benadryl PO 25 mg Q6H PRN Administration Itching & Insomnia Docusate Sodium 100 mg 04/24/19 09:00 04/26/19 08:07 Colace PO 100 mg QAM KITA Administration Dextrose/Sodium Chloride 1,000 mls @ 75 mls/hr 04/24/19 02:15 04/26/19 13:33 D5 0.9% Ns IV Not Given .[id number] KITA Insulin Human Lispro 0 units 04/24/19 02:13 04/26/19 11:32 Humalog SC 3 unit .MILD SLIDING SCALE PRN Administration Mild Correctional Scale Iron/Minerals/Multivitamins 1 tab 04/24/19 09:00 04/26/19 08:07 Theragran M PO 1 tab DAILY KITA Administration Lidocaine 1 patch 04/25/19 17:00 04/25/19 18:06 Lidoderm 5% Patch TD 1 patch 1700 KITA Administration Melatonin 4.5 mg 04/25/19 21:00 04/25/19 20:39 Melatonin PO 4.5 mg HS KITA Administration Metoprolol Tartrate 25 mg 04/24/19 09:00 04/26/19 08:07 Lopressor PO 25 mg BID KITA Administration Miscellaneous Medication 1 each 04/26/19 05:00 04/26/19 05:35 Lidocaine Patch Removal TOP Not Given 0500 KITA Morphine Sulfate 4 mg 04/24/19 03:28 04/25/19 08:18 Morphine SLOW IVP 4 mg Q4H PRN Administration Pain Ondansetron HCl 4 mg 04/24/19 15:07 04/24/19 21:10 Zofran IVP 4 mg Q6H PRN Administration Nausea/Vomiting Pantoprazole Sodium 40 mg 04/25/19 18:00 04/25/19 18:06 Protonix PO 40 mg 1800 KITA Administration Liraglutide [Victoza 0 each 04/25/19 09:00 04/26/19 08:07 3-Stevenson] 1.2 Mg SC 1 each DAILY KITA Administration - Exam General Appearance: NAD, awake alert Eye: PERRL, anicteric sclera ENT: normocephalic atraumatic, no oropharyngeal lesions Neck: supple, symmetric, no JVD, no thyromegaly, no lymphadenopathy Heart: RRR, no murmur, no gallops, no rubs, normal peripheral pulses Respiratory: CTAB, no wheezes, no rales, no ronchi Gastrointestinal: soft, non-distended, normal bowel sounds, no palpable masses Gastrointestinal - other findings: mild TTP in RUQ/flank Extremities: no cyanosis, no clubbing, no edema Skin: normal turgor, no lesions Neurological: cranial nerve grossly intact, no new deficit Musculoskeletal: normal tone, normal strength Psychiatric: normal behavior, A&O x 3 Hosp A/P (1) RUQ abdominal pain Code(s): R10.11 - RIGHT UPPER QUADRANT PAIN Status: Acute Plan: Improved s/p liver bx, supportive mgmt (2) Liver mass Code(s): R16.0 - HEPATOMEGALY, NOT ELSEWHERE CLASSIFIED Status: Acute Plan: s/p bx with pathology pending, likely home in 24h with outpt f/u (3) Acute kidney injury superimposed on CKD Code(s): N17.9 - ACUTE KIDNEY FAILURE, UNSPECIFIED; N18.9 - CHRONIC KIDNEY DISEASE, UNSPECIFIED Status: Acute Plan: Avoid nephrotoxic meds and limit contrast exposure (4) DM II (diabetes mellitus, type II), controlled Code(s): E11.9 - TYPE 2 DIABETES MELLITUS WITHOUT COMPLICATIONS Status: Chronic - Plan out of bed/ambulate, DVT proph w/SCDs Stable currently Continue Pain control with Morphine Sulfate PRN OOB/ambulate ASA held Liver bx pathology pending Likely home in 24h
[2019-04-26] MEDS: Lidocaine 5% Patch TD SCH (18:27)
[2019-04-26] MEDS: Atorvastatin Calcium 10 MG TAB PO SCH (20:37)
[2019-04-26] MEDS ORDERED: traMADol HCl 50 MG TAB PO SCH (21:00)
[2019-04-26] MEDS: Melatonin 3 MG TAB PO SCH (21:10)
[2019-04-26] MEDS: diphenhydrAMINE 25 MG CAP PO PRN (21:14)
[2019-04-27] MEDS: Dextrose 5 % And 0.9 % NaCl 1,000 ML IV SCH (01:45)
[2019-04-27] MEDS: Lidocaine Patch Removal 1 EACH TOP SCH (04:47)
[2019-04-27] MEDS: Multivitamin W/ Minerals 1 TAB PO SCH (08:30)
[2019-04-27] MEDS: Docusate 100 MG CAP PO SCH (08:30)
[2019-04-27] MEDS: Metoprolol Tartrate 25 MG TAB PO SCH (08:30)
[2019-04-27] MEDS: Liraglutide [Victoza 3-Pak] 1.2 MG SC SCH (08:31)
[2019-04-27 09:28] VITALS: BP 153/78; TEMP 97.7
[2019-04-27] MEDS ORDERED: ISOVUE-370 76%-LOCM 1 ML ONE (12:58)
--- NOTE | 2019-04-27 16:42 | PDOC.MOPN ---
Interval History: pain is much better, she is ready to go home, she is waiting for results - Vital Signs Vital Signs: Vital Signs (12 hours) Temp Pulse Resp BP Pulse Ox 04/27/19 08:00 97.7 F 64 16 153/78 H 95 Weight Weight 189 lb 15.204 oz - Physical Exam General: Oriented x3 HEENT: Atraumatic Lungs: Clear to auscultation Cardiovascular: Regular rate Abdomen: Normal bowel sounds, Other (mildly tender in RUQ) Extremities: No clubbing, No cyanosis Skin: No rashes - Labs Result Diagrams: 04/24/19 11:36 04/26/19 03:38 Lab results: Laboratory Results - last 24 hr 04/27/19 11:00: POC Glucose 204 H 04/27/19 06:16: POC Glucose 114 H 04/27/19 04:34: IgA Total 272.00 04/26/19 19:20: POC Glucose 112 H 04/26/19 16:12: POC Glucose 115 H A/P - Problem (1) Liver mass Code(s): R16.0 - HEPATOMEGALY, NOT ELSEWHERE CLASSIFIED Status: Acute (2) RUQ abdominal pain Code(s): R10.11 - RIGHT UPPER QUADRANT PAIN Status: Acute - Plan Plan: 1. d/c today 2. PET as outpt 3. review path here, check [id number] 4. f/u in clinic within one week hopefully
--- NOTE | 2019-04-28 00:48 | DIS ---
DATE OF ADMISSION: 04/24/2019 DATE OF DISCHARGE: 04/27/2019 DISCHARGE DIAGNOSES: 1. Metastatic hepatic carcinoma, suspected breast primary. 2. Right upper quadrant abdominal pain status post liver biopsy, improved. 3. Acute kidney injury on chronic kidney disease, improved. 4. Diabetes mellitus type 2, stable. CONSULTATIONS: 1. Dr. Waite with GI Service. 2. Dr. Chen and Dr. Lopez with General Surgery Service. 3. Dr. Gabriel with Medical Oncology Service. PERTINENT LABORATORY AND X-RAY FINDINGS: Creatinine ranged between 1.38 to 1.65. Estimated GFR ranged between 31 to 38. LFTs within normal limits. CEA 1.82. CA-125 is 17.4. Stool culture negative on 04/26/2019. C difficile antigen and toxin dated 04/26/2019, negative. CT of the abdomen and pelvis dated 04/23/2019, showed thin layer of subcapsular hematoma at the lateral surface of the right lobe of the liver, status post biopsy. Hepatobiliary scan dated 04/24/2019, showed negative findings with gallbladder ejection fraction of 66%. Abdominal ultrasound dated 04/24/2019, showed no obvious large hematoma. Hypoechoic mass in the right lobe of the liver. CT of the brain without contrast dated 04/25/2019, showed negative findings. HOSPITAL COURSE: The patient was initially admitted after presenting with increasing abdominal pain, status post recent liver biopsy after suspicious hypoechoic mass was noted in the right lobe of the liver. The patient was placed on initial treatment including morphine sulfate and IV fluids. The patient underwent abdominal ultrasound and CT imaging of the liver showing evidence of small subcapsular hematoma at the biopsy site. The patient continued to receive IV and oral pain medication with overall improvement in symptoms. The patient was evaluated by the General Surgery Service and Gastroenterology Service without specific recommendation for an acute intervention. The patient's right upper quadrant abdominal pain and flank pain had improved and resolved by the time of discharge. The patient's biopsy results did reveal findings consistent with carcinoma, suspected breast primary. Final testing of the sample pending at the time of this dictation. The patient was evaluated by Medical Oncology Service with recommendations for outpatient followup and PET scan imaging. The patient overall remained clinically stable during the hospital course and tolerated regular oral intake. Vital signs have remained stable. I have examined the patient at the time of discharge and discussed followup instructions. The patient verbalized understanding and in agreement, ready for discharge on 04/27/2019. DISCHARGE MEDICATIONS: 1. Enteric-coated aspirin 81 mg p.o. daily. 2. Calcium carbonate 1 tablet p.o. b.i.d. 3. Colace 100 mg p.o. daily. 4. Victoza 1.2 mg subcutaneously daily. 5. Magnesium 500 mg p.o. daily. 6. Melatonin 5 mg p.o. at bedtime. 7. Lopressor 25 mg p.o. b.i.d. 8. Multivitamin 1 tablet p.o. daily. 9. Protonix 40 mg p.o. daily. 10. Simvastatin 20 mg p.o. at bedtime. 11. Coenzyme Q10 400 mg p.o. daily. FOLLOWUP: The patient may follow up with her primary care provider, Dr. Bobby Nicolas within 7 days of discharge. The patient to follow up with Dr. Radha Gabriel and to call her office for appointment time and date. CONDITION ON DISCHARGE: Stable. ACTIVITY: Ad-kenn. DIET: ADA. CODE STATUS: Full. DISPOSITION: Home on 04/27/2019. TIME SPENT: Total time preparing and coordinating discharge is 31 minutes. Job ID: [id number]
== END 2019-04-27 15:51 | disposition home or self-care (01) | DRG 920 ==
LOC: ERS 19:40 → ONC 04-24 01:26 → OBSVTOIN 04-24 01:26
PROVIDERS: ADMIT Internal Medicine; ATTEND Internal Medicine
DX: K91.870 Postprocedural hematoma of a digestive system organ or structure following a digestive system procedure (principal); C78.7 Secondary malignant neoplasm of liver and intrahepatic bile duct; N17.9 Acute kidney failure, unspecified; N18.9 Chronic kidney disease, unspecified; E11.22 Type 2 diabetes mellitus with diabetic chronic kidney disease; I12.9 Hypertensive chronic kidney disease with stage 1 through stage 4 chronic kidney disease, or unspecified chronic kidney disease; Z96.651 Presence of right artificial knee joint; E78.5 Hyperlipidemia, unspecified; G43.909 Migraine, unspecified, not intractable, without status migrainosus; Y84.8 Other medical procedures as the cause of abnormal reaction of the patient, or of later complication, without mention of misadventure at the time of the procedure; Z88.2 Allergy status to sulfonamides; Z88.8 Allergy status to other drugs, medicaments and biological substances; Z79.899 Other long term (current) drug therapy; Z79.82 Long term (current) use of aspirin; Z79.4 Long term (current) use of insulin; Z85.3 Personal history of malignant neoplasm of breast
CPT/HCPCS: 36415; 36416; 70470; 74177; 76705; 78227; 80048; 80053; 82378; 83516; 83630; 85025; 86300; 86304; 87045; 87046; 87324; 87328; 87329; 87427; 87449; 93005; 96361; 96365; 96375; A9537; J1200; J1885; J2270; J2405; J2550; Q0163; Q9966

== ENCOUNTER 2019-04-30 13:11 | Outpatient (CLI) | payer BC ==
--- NOTE | 2019-04-30 16:45 | PET ---
PET CT: 04/30/19 HISTORY: 64-year-old female with breast cancer metastatic to the liver. Exam requested for restaging. TECHNIQUE: PET scan with CT attenuation correction was performed from the base of the brain to the proximal thi ghs following the intravenous administration of 10.5 millicuries of 15-Fluoroxyglucose in the left an tecubital fossa. COMPARISON: None. CORRELATION: CT scans of abdomen and pelvis dated 04/23/19 and 04/15/19. FINDINGS: No katlin hypermetabolism is seen in the neck, chest, axillae, abdomen, pelvis or inguinal regions. No hypermetabolic pulmonary nodules, adrenal or skeletal lesions are seen. There is a large hypermetabolic right liver lobe mass corresponding to the finding on the CT scan wit h an SUV of 19. There is physiologic activity in the GI and tracts and the visualized portions of the brain. The CT scan used for attenuation correction demonstrates no evidence of pleural effusions or ascites. IMPRESSION: Findings consistent with large solitary right liver lobe metastasis. POS: DAVID
== END 2019-04-30 13:12 | disposition home or self-care (01) ==
LOC: PET 13:11
PROVIDERS: ATTEND Internal Medicine Hematology & Oncology
DX: C78.7 Secondary malignant neoplasm of liver and intrahepatic bile duct (principal); C50.919 Malignant neoplasm of unspecified site of unspecified female breast
CPT/HCPCS: 78815; A9552

== ENCOUNTER 2019-06-03 16:59 | Emergency (ER) | payer BC ==
[2019-06-03 17:32] LABS: Hemoglobin 11.8 g/dL (12.0-16.0); Mean Corpuscular HGB CONC 35.8 g/dL (32.0-36.0); Mean Corpuscular Hemoglobin 31.5 pg (27.0-31.0); Mean Corpuscular Volume 88.2 fL (78.0-98.0); Mean Platelet Volume 6.6 fL (7.4-10.4); Platelet Count 139 thou/uL (130-400); RBC Distribution Width 15.8 % (11.5-14.5); Red Blood Cell (RBC) Count 3.75 mill/uL (4.20-5.40); White Blood Cell (WBC) Count 2.6 thou/uL (4.8-10.8)
[2019-06-03 17:49] LABS: Anisocytosis SLIGHT = 6-15 cells (100X) (0-5/hpf); Band 1 % (5-11); Lymphocytes 59 % (21-51); MDiff Complete? YES; Monocytes 14 % (0-10); Neutrophil 21 % (42-75); Platelet Morphology Comment Appears Adequate; Polychromasia SLIGHT = 2-3 cells (100X) (0-2/hpf); Reactive Lymphocytes 5 % (0-10)
[2019-06-03 17:58] LABS: ALT (SGPT) 11 U/L (8-55); AST (SGOT) 14 U/L (5-34); Albumin 4.2 g/dL (3.4-4.8); Alkaline Phosphatase 106 U/L (40-110); Anion Gap 14 mmol/L (10-20); BUN (Urea Nitrogen) 22 mg/dL (9.8-20.1); Bilirubin, Total 0.3 mg/dL (0.2-1.2); Calc. Creatinine Clearance 0 mL/min (70-130); Calcium 7.7 mg/dL (7.8-10.44); Carbon Dioxide 22 mmol/L (23-31); Chloride 109 mmol/L (98-107); Estimated GFR-MDRD 40; Globulin 2.8 g/dL (2.4-3.5); Glucose 132 mg/dL (80-115); Potassium 3.5 mmol/L (3.5-5.1); Sodium 141 mmol/L (136-145)
[2019-06-03 18:17] LABS: Bacteria/HPF None Seen HPF (None Seen); Bilirubin Negative (Negative); Blood, Urine 1+ (Negative); Clarity Clear (Clear); Glucose, Urine (Dipstick) Normal (Negative); Leukocyte 25 Leu/uL (Negative); Nitrite Negative (Negative); Protein, Urine (Dipstick) 70 mg/dL (Neg-Trace); RBC/HPF 0-3 HPF (0-3); Urobilinogen Normal mg/dL (Less than 2)
[2019-06-03] MEDS ORDERED: Magnesium 2 GM/50 ML BAG (IN WATER) ONE (18:27)
== END 2019-06-03 19:38 | disposition home or self-care (01) ==
LOC: ERS 16:59
DX: I10 Essential (primary) hypertension (principal); E83.42 Hypomagnesemia; D70.9 Neutropenia, unspecified; E11.9 Type 2 diabetes mellitus without complications; E78.5 Hyperlipidemia, unspecified; Z85.3 Personal history of malignant neoplasm of breast
CPT/HCPCS: 80053; 81003; 81015; 82248; 83615; 83735; 84100; 84484; 84550; 85025; 93005; 96365; J3475

== ENCOUNTER 2019-09-22 11:16 | Outpatient (CLI) | payer BC ==
--- NOTE | 2019-09-22 14:08 | PET ---
PET CT: HISTORY: 64-year-old female with breast cancer, metastatic to liver. Exam requested for restaging. Malignant n eoplasm of central portion of left female breast. Exam requested to evaluate for subsequent therapy. TECHNIQUE: PET scanning with CT attenuation correction was performed from the base of the brain through the prox imal thighs following the intravenous administration of 11.3 mCi [id number] in the right antecubital fos sa. COMPARISON: PET scan of 04/30/2019. FINDINGS: There is increased peripheral uptake in the right liver mass seen on the previous study with a curren t SUV of 9(previously 19. This mass approximately measures about 6.0 cm and is smaller compared to pr evious study. No new hepatic lesions are seen. No katlin hypermetabolism is noted in the neck, chest, axilla, abdomen, or pelvis. No hypermetabolic pulmonary nodules, adrenal, or skeletal lesions are seen. There is physiologic activity in the GI and tracts, and visualized portions of the brain. The CT scan used for attenuation correction demonstrates no evidence of pleural effusions or ascites. IMPRESSION: Partial/incomplete response to therapy since 04/30/2019. POS: DAVID
== END 2019-09-22 11:17 | disposition home or self-care (01) ==
LOC: PET 11:16
PROVIDERS: ATTEND Internal Medicine Hematology & Oncology
DX: C50.919 Malignant neoplasm of unspecified site of unspecified female breast (principal); C78.7 Secondary malignant neoplasm of liver and intrahepatic bile duct
CPT/HCPCS: 78815; A9552

== ENCOUNTER 2020-01-19 07:44 | Outpatient (CLI) | payer BC ==
[2020-01-19] MEDS ORDERED: Magnevist 469MG/ML 20 ML VIAL ONE (09:26)
--- NOTE | 2020-01-19 14:28 | MRI ---
MR OF THE ABDOMEN WITH AND WITHOUT CONTRAST: 01/19/20 INDICATION: History of malignant neoplasm of the left breast with history of a right hepatectomy of a solitary li krysta mass with concern for a possible infection in the postoperative period. COMPARISON: Prior PET CT dated 09/22/[address] of the abdomen and pelvis dated 04/23/19. TECHNIQUE: Multiplanar and multisequence MR images were obtained of the abdomen with and without IV contrast [facility] liver mass protocol. 8 mL of Multihance was administered for the exam. FINDINGS: There is postprocedural change of a right hepatectomy. There is a small amount of fluid seen near th e operative bed of the right hepatectomy, adjacent to the left hepatic lobe. There is a more loculate d T2 hyperintense subcapsular collection seen along the posterior margin of the left hepatic dome, me asuring approximately 3.1 cm in its greatest dimension, with posterior peripheral enhancement. Findi ngs may reflect a small subcapsular fluid collection. There is a 1.3 cm region of diminished enhancement involving segment 4B of the left hepatic lobe on i mage 36 of series 18. This lesion appears isointense to the background liver on the T1 and T2 weighte d series. The lesion is accentuated on the postcontrast series with area of diminished enhancement. T his abuts the capsular margin and causes mild retraction of the capsular margin. There is suggestion of some peripheral enhancement along the margin of the lesion. The pancreas and adrenal glands are normal appearing. There are bilateral renal cysts. One of the lar gest is seen within the inferior pole of the left kidney measuring 2.7 cm. There is splenomegaly jennifer uring 14.6 cm. No definite enlarged lymph nodes are evident. There is postprocedural change of an in cision involving the right upper quadrant of the anterior abdominal wall. There is a small right pleural effusion. IMPRESSION: 1. Postprocedural change of right hepatectomy with a subcapsular fluid collection overlying the posterior left hepatic dome. Again with the patient's recent postoperative state, this is likely a po stoperative subcapsular seroma. Superimposed infection cannot be entirely excluded. 2. Small focal region of ovoid contrast washout with some peripheral contiguous enhancement invo lving the left hepatic lobe. The lesion appears isointense to the liver on the precontrast images. Fi ndings may reflect a vascular anomaly related to the patient's postprocedural change; however, atypic al metastatic lesion not entirely excluded. As a conservative measure, would recommend a follow-up CT in 6 to 8 weeks with and without contrast utilizing hepatic mass protocol for additional characteriz ation. 3. Splenomegaly. 4. Small right pleural effusion. 5. Bilateral renal cysts. POS: BH
== END 2020-01-19 07:45 | disposition home or self-care (01) ==
LOC: MRI 07:44
PROVIDERS: ATTEND Internal Medicine Hematology & Oncology
DX: C50.112 Malignant neoplasm of central portion of left female breast (principal); C78.7 Secondary malignant neoplasm of liver and intrahepatic bile duct; N28.1 Cyst of kidney, acquired; J90 Pleural effusion, not elsewhere classified; R16.1 Splenomegaly, not elsewhere classified; Z98.890 Other specified postprocedural states
CPT/HCPCS: 36415; 74183; 80053; 82248; 82565; 83615; 84100; 84550; 86300; A9579

== ENCOUNTER 2020-05-20 09:06 | Outpatient (CLI) | payer BC ==
--- NOTE | 2020-05-20 11:33 | PET ---
Radionucleotide PET scan with CT attenuation correction HISTORY: Malignant neoplasm left breast disease. Restaging. COMPARISON: 09/22/2019. FINDINGS: Interval postoperative changes of the liver with resection of the right liver lobe containi ng the previously hypermetabolic metastasis. No residual pathologic activity is apparent within the liver. Postoperative changes of the overlying right upper quadrant anterolateral wall are evident wit h radiotracer activity max SUV up to 4.6. No associated mass on the CT images. Photopenic defect at the left kidney consistent with the large cyst that appears stable. No new areas of hypermetabolic activity are apparent. Physiologic uptake of radiotracer evident within the enteric system and along each urinary tract. IMPRESSION : Interval surgical resection of the liver lesion. No new abnormalities.
== END 2020-05-20 09:07 | disposition home or self-care (01) ==
LOC: PET 09:06
PROVIDERS: ATTEND Internal Medicine Hematology & Oncology
DX: C78.7 Secondary malignant neoplasm of liver and intrahepatic bile duct (principal); C50.912 Malignant neoplasm of unspecified site of left female breast; K76.9 Liver disease, unspecified; Z98.890 Other specified postprocedural states
CPT/HCPCS: 78815; A9552

== ENCOUNTER 2020-09-15 10:25 | Outpatient (CLI) | payer BC ==
--- NOTE | 2020-09-15 14:07 | PET ---
Radionucleotide PET scan with CT attenuation correction HISTORY: Malignant neoplasm of central portion left female breast. Restaging. COMPARISON: 05/20/2020. FINDINGS: Postoperative changes of the abdomen with partial liver resection again demonstrated. Cysts arise from the cortex of each kidney. A focal rounded area of increased radiotracer uptake at the superior pole of the right kidney shows m ax SUV 7.8 without mass apparent on the CT images. No other new areas of increased radiotracer uptake. Physiologic uptake of radiotracer is apparent within the enteric system and along each urinary tract. IMPRESSION : No reliable evidence of recurrent neoplasm. The focus of increased uptake at the superior pole of the right kidney most likely represents urine e xcretion, as no mass was apparent at this location on recent MRI. Options would include to follow this area on the next PET scan or perform an interval CT kidneys, without and with IV contrast, for bill kidd anatomic characterization.
== END 2020-09-15 10:26 | disposition home or self-care (01) ==
LOC: PET 10:25
PROVIDERS: ATTEND Internal Medicine Hematology & Oncology
DX: C50.112 Malignant neoplasm of central portion of left female breast (principal); C78.7 Secondary malignant neoplasm of liver and intrahepatic bile duct
CPT/HCPCS: 78815; A9552

== ENCOUNTER 2021-01-11 21:55 | Emergency (ER) | payer BC ==
[2021-01-11 22:43] LABS: #Eosinphils 0.1 thou/uL (0.0-0.7); #Lymphocytes 1.2 thou/uL (1.20-3.40); #Monocytes 0.2 thou/uL (0.11-0.59); #Neutrophils 3.4 thou/uL (1.40-6.50); %Basophils 0.2 % (0.0-1.0); %Eosinophils 1.1 % (0.0-10.0); %Lymphocytes 25.3 % (21.0-51.0); %Monocytes 3.8 % (0.0-10.0); %Neutrophils 69.8 % (42.0-75.0); Hemoglobin 13.7 g/dL (12.0-16.0); Mean Corpuscular HGB CONC 35.9 g/dL (32.0-36.0); Mean Corpuscular Hemoglobin 35.2 pg (27.0-31.0); Mean Corpuscular Volume 98.1 fL (78.0-98.0); Mean Platelet Volume 7.3 fL (7.4-10.4); Platelet Count 134 thou/uL (130-400); RBC Distribution Width 13.4 % (11.5-14.5); Red Blood Cell (RBC) Count 3.89 mill/uL (4.20-5.40); White Blood Cell (WBC) Count 4.8 thou/uL (4.8-10.8)
[2021-01-11] MEDS ORDERED: Ondansetron PF 4 MG/2 ML Vial ONE (22:45)
[2021-01-11] MEDS ORDERED: Morphine 4 MG/ML VIAL ONE (22:45)
[2021-01-11 23:05] LABS: ALT (SGPT) 18 U/L (8-55); AST (SGOT) 23 U/L (5-34); Albumin 4.3 g/dL (3.4-4.8); Alkaline Phosphatase 123 U/L (40-110); Anion Gap 17 mmol/L (10-20); BUN (Urea Nitrogen) 21 mg/dL (9.8-20.1); Bilirubin, Total 0.6 mg/dL (0.2-1.2); Calc. Creatinine Clearance 0 mL/min (70-130); Calcium 10.1 mg/dL (7.8-10.44); Carbon Dioxide 20 mmol/L (23-31); Chloride 107 mmol/L (98-107); Globulin 3.2 g/dL (2.4-3.5); Glucose 167 mg/dL (80-115); Lipase 57 U/L (8-78); Potassium 4.5 mmol/L (3.5-5.1); Protein, Total 7.5 g/dL (5.8-8.1); Sodium 139 mmol/L (136-145)
[2021-01-11 23:48] LABS: Bacteria/HPF None Seen HPF (None Seen); Bilirubin Negative (Negative); Blood, Urine 2+ (Negative); Clarity Clear (Clear); Glucose, Urine (Dipstick) Normal (Negative); Ketone, Urine Negative (Negative); Leukocyte Negative Leu/uL (Negative); Nitrite Negative (Negative); Protein, Urine (Dipstick) 100 mg/dL (Neg-Trace); RBC/HPF 0-3 HPF (0-3); Specific Gravity, Urine 1.015 (1.002-1.036); Squamous Epithelial None Seen HPF (0-3); Urobilinogen Normal mg/dL (Less than 2); WBC/HPF 0-3 HPF (0-3); pH, Urine 5.5 (5.0-9.0)
== END 2021-01-12 01:35 | disposition home or self-care (01) ==
LOC: ERS 21:55
DX: N28.1 Cyst of kidney, acquired (principal); E11.9 Type 2 diabetes mellitus without complications; E78.5 Hyperlipidemia, unspecified; I10 Essential (primary) hypertension; Z85.3 Personal history of malignant neoplasm of breast
CPT/HCPCS: 74176; 80053; 81003; 81015; 82550; 83690; 83880; 84484; 85025; 93005; 96374; 96375; J2270; J2405

== ENCOUNTER 2021-03-27 08:56 | Outpatient (CLI) | payer BC | END 2021-03-27 08:57 | disposition home or self-care (01) | LOC: PET 08:56 | PROVIDERS: ATTEND Internal Medicine Hematology & Oncology | DX: C78.7 Secondary malignant neoplasm of liver and intrahepatic bile duct (principal); C50.112 Malignant neoplasm of central portion of left female breast; Z90.49 Acquired absence of other specified parts of digestive tract; R94.4 Abnormal results of kidney function studies | CPT/HCPCS: 78815; A9552 ==

== ENCOUNTER 2021-11-14 07:37 | Outpatient (CLI) | payer BC | END 2021-11-14 07:38 | disposition home or self-care (01) | LOC: SCSMRI 07:37 | PROVIDERS: ATTEND Internal Medicine Hematology & Oncology | DX: R93.2 Abnormal findings on diagnostic imaging of liver and biliary tract (principal) | CPT/HCPCS: 74183 ==

== ENCOUNTER 2022-04-24 07:34 | Outpatient (CLI) | payer BC | END 2022-04-24 07:35 | disposition home or self-care (01) | LOC: SCSMRI 07:34 | PROVIDERS: ATTEND Internal Medicine Hematology & Oncology | DX: C78.7 Secondary malignant neoplasm of liver and intrahepatic bile duct (principal); R16.1 Splenomegaly, not elsewhere classified | CPT/HCPCS: 74183; 82565 ==

== ENCOUNTER 2022-08-28 08:45 | Outpatient (CLI) | payer BC | END 2022-08-28 08:46 | disposition home or self-care (01) | LOC: PET 08:45 | PROVIDERS: ATTEND Internal Medicine Hematology & Oncology | DX: C50.112 Malignant neoplasm of central portion of left female breast (principal); C78.7 Secondary malignant neoplasm of liver and intrahepatic bile duct | CPT/HCPCS: 78815; A9552 ==

== ENCOUNTER 2023-03-05 11:00 | Outpatient (CLI) | payer BC | END 2023-03-05 11:01 | LOC: PET 11:00 | PROVIDERS: ATTEND Internal Medicine Hematology & Oncology | DX: C50.112 Malignant neoplasm of central portion of left female breast (principal); C78.7 Secondary malignant neoplasm of liver and intrahepatic bile duct; C77.1 Secondary and unspecified malignant neoplasm of intrathoracic lymph nodes | CPT/HCPCS: 78815; A9552 ==

== ENCOUNTER 2024-05-04 16:21 | Inpatient (IN) | payer BC, MEDICARE ==
[~2024-05-04 16:21] MED LIST changes: -ISOVUE-370 76%-LOCM 1 ML ONE; +Iopamidol 370 76% 100 ML VIAL ONE
[2024-05-04] MEDS ORDERED: fentaNYL 50 mcg/mL 1 mL Vial ONE ×3 (20:23→23:08)
[2024-05-04 20:33] LABS: #Basophils Less than 0.03 10x3/uL (0.0-0.2); %Basophils 0.3 % (0.0-1.0); %Lymphocytes 12.3 % (21.0-51.0); %Neutrophils 81.1 % (42.0-75.0); Hematocrit 26.4 % (36.0-47.0); Mean Corpuscular HGB CONC 34.1 g/dL (32.0-36.0); Mean Corpuscular Hemoglobin 34.6 pg (27.0-31.0); Mean Corpuscular Volume 101.5 fL (78.0-98.0); Mean Platelet Volume 11.8 fL (7.4-10.4); Platelet Count 43 10x3/uL (130-400); RBC Distribution Width 16.1 % (11.5-14.5)
[2024-05-04 20:47] LABS: ALT (SGPT) 29 U/L (8-55); AST (SGOT) 117 U/L (5-34); Albumin 2.3 g/dL (3.4-4.8); Alkaline Phosphatase 150 U/L (40-110); Anion Gap 15 mmol/L (10-20); BUN (Urea Nitrogen) 42 mg/dL (9.8-20.1); Bilirubin, Total 1.6 mg/dL (0.2-1.2); Calc. Creatinine Clearance 0 mL/min (70-130); Calcium 8.5 mg/dL (7.8-10.44); Carbon Dioxide 19 mmol/L (23-31); Chloride 108 mmol/L (98-107); Estimated GFR 26; Globulin 3.7 g/dL (2.4-3.5); Glucose 103 mg/dL (80-115); Magnesium 1.6 mg/dL (1.6-2.6); Potassium 4.5 mmol/L (3.5-5.1); Sodium 137 mmol/L (136-145)
[2024-05-04 20:48] LABS: Troponin I Less than 0.010 ng/mL (< 0.028)
[2024-05-04] MEDS ORDERED: Acetaminophen 650 MG Suppository PR PRN (23:42)
[2024-05-04] MEDS ORDERED: Ondansetron PF 4 MG/2 ML Vial IVP PRN (23:42)
[2024-05-05] MEDS ORDERED: Dextrose 50% Abboject 50 ML SYRINGE SLOW IVP PRN (00:39)
[2024-05-05] MEDS ORDERED: Dextrose 5% in Water 1,000 ML IV PRN (00:39)
[2024-05-05] MEDS ORDERED: Glucagon 1 MG/ML KIT IM PRN (00:39)
[2024-05-05 00:50] LABS: INR-International Normal Ratio 2.6; Lactic Acid 2.72 mmol/L (0.5-2.2)
[2024-05-05 00:52] LABS: PTT 46.8 sec (22.9-36.1)
[2024-05-05 01:25] LABS: Hematocrit 31.3 % (36.0-47.0); Hemoglobin 10.3 g/dL (12.0-16.0); Mean Corpuscular HGB CONC 32.9 g/dL (32.0-36.0); Mean Corpuscular Volume 103.3 fL (78.0-98.0); Mean Platelet Volume 10.4 fL (7.4-10.4); Platelet Count 30 10x3/uL (130-400); Red Blood Cell (RBC) Count 3.03 mill/uL (4.20-5.40)
[2024-05-05 01:37] LABS: Anisocytosis MODERATE=16-30 cells HPF (0-5); Band 2 % (5-11); Burr Cells SLIGHT = 2-5 cells HPF (0-1); Large Platelets 3.7 % (0-5); Lymphocytes 7 % (21-51); Monocytes 1 % (0-10); Neutrophil 89 % (42-75); Platelet Adequacy Comment Significant Decrease; Polychromasia SLIGHT = 2-3 cells HPF (0-2); Reactive Lymphocytes 1 % (0-10); Smudge Cells 11.1 %
[2024-05-05] MEDS ORDERED: Lactulose 20 GM (30 mL) UDCUP ONE (01:51)
[2024-05-05] MEDS: Pantoprazole 40 MG VIAL IVP SCH ×2 (03:40→09:17)
[2024-05-05] MEDS: Lactated Ringer's 1,000 ML IV SCH (03:41)
[2024-05-05 05:28] VITALS: BMI 30.7
[2024-05-05] MEDS: Aluminum & Magnesium Hydroxide 60 ML, Lidocaine 2% Viscous Solution 30 ML, diphenhydrAM... SSW PRN (05:32)
[2024-05-05] MEDS: LevoFLOXacin 500 MG TAB PO SCH (05:32)
[2024-05-05] MEDS: traMADol HCl 50 MG TAB PO PRN (05:33)
[2024-05-05] MEDS ORDERED: MAGIC MOUTHWASH 10 ML UDCUP SSP PRN (08:38)
[2024-05-05] MEDS ORDERED: Non-Formulary Item 1 EACH (Multivit-Min/Iron/Folic/Lutein [Centrum Silver Women] 1 TABLET PO SCH (09:00)
[2024-05-05] MEDS ORDERED: LUTEIN 40 MG PO SCH (09:00)
[2024-05-05] MEDS ORDERED: [UNRECOGNIZED DRUG - OTHER] PO SCH (09:00)
[2024-05-05] MEDS ORDERED: PYRIDOXINE PO SCH (09:00)
[2024-05-05] MEDS ORDERED: LEUCOVORIN PO SCH (09:00)
[2024-05-05] MEDS ORDERED: MECOBALAMIN PO SCH (09:00)
[2024-05-05] MEDS: Polyethylene Glycol 3350 17 GM Packet PO SCH (09:08)
[2024-05-05] MEDS: Senokot S 8.6-50 MG TAB PO SCH (09:08)
[2024-05-05] MEDS: Multivitamin W/ Minerals 1 TAB PO SCH (09:24)
[2024-05-05 10:03] LABS: Hematocrit 23.8 % (36.0-47.0); Hemoglobin 8.1 g/dL (12.0-16.0); Mean Corpuscular Hemoglobin 34.8 pg (27.0-31.0); Mean Corpuscular Volume 102.1 fL (78.0-98.0); Platelet Count 32 10x3/uL (130-400); RBC Distribution Width 16.4 % (11.5-14.5); Red Blood Cell (RBC) Count 2.33 mill/uL (4.20-5.40); Reflex for Review?? YES
[2024-05-05 10:18] LABS: Anion Gap 12 mmol/L (10-20); BUN (Urea Nitrogen) 39 mg/dL (9.8-20.1); Calc. Creatinine Clearance 33 mL/min (70-130); Carbon Dioxide 16 mmol/L (23-31); Chloride 114 mmol/L (98-107); Estimated GFR 28; Glucose 186 mg/dL (80-115); Potassium 3.8 mmol/L (3.5-5.1); Sodium 138 mmol/L (136-145)
[2024-05-05 11:06] LABS: Band 17 % (5-11); Large Platelets 6.4 % (0-5); Lymphocytes 12 % (21-51); Macrocytosis SLIGHT = 6-15 cells HPF (0-5); Monocytes 1 % (0-10); Neutrophil 69 % (42-75); Platelet Adequacy Comment Significant Decrease
[2024-05-05] MEDS: Morphine 4 MG/ML VIAL SLOW IVP PRN (14:35)
[2024-05-05] MEDS: LevoFLOXacin 250 MG TAB PO SCH (15:51)
[2024-05-05 17:34] VITALS: BMI 30.7
[2024-05-05] MEDS: Melatonin 3 MG TAB PO SCH (20:57)
[2024-05-05] MEDS ORDERED: Non-Formulary Item 1 EACH (Melatonin [Melatonin] 10 MG Tablet) PO SCH (21:00)
[2024-05-06 09:06] VITALS: BP 95/63; TEMP 97.6
[2024-05-06] MEDS: [UNRECOGNIZED DRUG - OTHER] PO SCH (09:23)
[2024-05-06] MEDS: LUTEIN 40 MG PO SCH (09:23)
[2024-05-07] MEDS ORDERED: LevoFLOXacin 500 MG TAB PO SCH (06:00)
== END 2024-05-06 11:20 | disposition hospice, home (50) | DRG 435 ==
LOC: ERS 16:21 → ERHOLD 23:22 → INTOOBSV 23:22 → T4-A 05-05 03:32 → MSONC 05-05 11:26 → OBSVTOIN 05-05 16:07
PROVIDERS: ADMIT Internal Medicine; ATTEND Family Medicine
DX: C78.7 Secondary malignant neoplasm of liver and intrahepatic bile duct (principal); D61.810 Antineoplastic chemotherapy induced pancytopenia; I82.401 Acute embolism and thrombosis of unspecified deep veins of right lower extremity; N17.9 Acute kidney failure, unspecified; C50.919 Malignant neoplasm of unspecified site of unspecified female breast; T45.1X5A Adverse effect of antineoplastic and immunosuppressive drugs, initial encounter; D64.9 Anemia, unspecified; Z88.8 Allergy status to other drugs, medicaments and biological substances; N18.30 Chronic kidney disease, stage 3 unspecified; I12.9 Hypertensive chronic kidney disease with stage 1 through stage 4 chronic kidney disease, or unspecified chronic kidney disease; F41.9 Anxiety disorder, unspecified; G43.909 Migraine, unspecified, not intractable, without status migrainosus; Z96.651 Presence of right artificial knee joint; E11.22 Type 2 diabetes mellitus with diabetic chronic kidney disease; Z51.5 Encounter for palliative care; E86.0 Dehydration
CPT/HCPCS: 36415; 36416; 74177; 80048; 80053; 83605; 83735; 83880; 84484; 85025; 85060; 85610; 85730; 86850; 86870; 86900; 86901; 86905; 86922; 93005; G0378; J2272; J2470; J3010; J7120; Q0163; Q9967